=== PATIENT | female | born 1990 | race Caucasian/White ===

== ENCOUNTER 2017-07-24 07:02 | Inpatient (IN) | payer BC, OTHER ==
[2017-07-24 08:36] LABS: Bilirubin NEGATIVE (NEGATIVE); Blood 250 Ery/ul (0-5); Collection Type CLEAN CATCH; Glucose NEGATIVE (NEGATIVE); Leukocyte Esterase 2+ (NEGATIVE)
[2017-07-24 08:37] LABS: Bacteria PACKED /HPF (NEGATIVE); COMPLETE URINE MICROSCOPIC? YES; Epithelial Cells MANY /HPF (FEW); WBC 15-25 /HPF (0-5)
[2017-07-24] MEDS: ROCEPHIN 1 Gm-D5w 50 ml Bag** 1 G/50 ML IVPB IV SCH (10:40)
[2017-07-24] MEDS ORDERED: TYLENOL 325 MG PO PRN (12:49)
[2017-07-24] MEDS ORDERED: XYLOCAINE 1% HCL 20 ML MDV IJ PRN (13:29)
[2017-07-24] MEDS ORDERED: Lactated Ringers 1,000 ML IV SCH (13:30)
[2017-07-24] MEDS ORDERED: PITOCIN 30 UNITS/ LR 500 ML 500 ML IV SCH (13:30)
[2017-07-24 13:40] LABS: BASOPHIL % 0.2 % (0.0-0.4); Eosinophil % 0.7 % (0.00-5.0); Granulocytes % 79.3 % (36.0-66.0); Lymphocytes % 14.9 % (24.0-44.0); Mean Cell Volume 97.5 fl (78-100); Mean Platelet Volume 11.4 fl (6-9.5); Monocytes % 4.9 % (0.0-12.0); Platelet Count 240 K/mm3 (150-450); Red Blood Count 3.55 M/mm3 (4.1-5.4); Red Cell Distribution Width 13.3 % (11.5-14.0); White Blood Count 12.1 K/mm3 (4.0-10.5)
[2017-07-24 13:41] LABS: Mean Corpuscular Hemoglobin 32.6 pg (26-32)
[2017-07-24] MEDS ORDERED: OMNIPEN 2 GM / NACL 100ML 100 ML IV ONE (14:00)
[2017-07-24] MEDS ORDERED: OB EPIDURAL NAROPIN/SUFENTANIL IN NACL EPIDURAL PRN (15:26)
[2017-07-24] MEDS ORDERED: Lactated Ringers 1,000 ML IV ONE (15:26)
[2017-07-24] MEDS ORDERED: Ephedrine Sulfate 50 MG/ML IV PRN (15:26)
[2017-07-24] MEDS ORDERED: OMNIPEN 1GM / NaCl 100ML 100 ML IV SCH (18:00)
[2017-07-24] MEDS: MOTRIN 400 MG PO PRN (20:49)
[2017-07-24] MEDS ORDERED: Dermoplast Spray TP PRN (22:28)
[2017-07-24] MEDS ORDERED: TUCKS TP PRN (22:28)
[2017-07-24] MEDS ORDERED: CORTISONE 1% CREAM TP PRN (22:58)
[2017-07-24] MEDS ORDERED: Mylicon 80MG PO PRN (22:58)
[2017-07-24] MEDS ORDERED: Restoril 15 MG PO PRN (22:58)
[2017-07-24] MEDS ORDERED: NORCO 5/325 MG PO PRN (22:58)
[2017-07-24] MEDS ORDERED: Ambien 10 MG PO PRN (22:58)
[2017-07-24] MEDS ORDERED: Anucort-HC SUPPOSITORY PR PRN (22:58)
[2017-07-24] MEDS ORDERED: Dulcolax 10 MG SUPP PR PRN (22:58)
[2017-07-25] MEDS: TYLENOL EXTRA STRENGTH 500 MG PO PRN ×3 (01:55→20:20)
[2017-07-25 05:45] LABS: BASOPHIL % 0.1 % (0.0-0.4); Eosinophil % 0.9 % (0.00-5.0); Granulocytes % 75.1 % (36.0-66.0); Lymphocytes % 17.3 % (24.0-44.0); Mean Platelet Volume 10.9 fl (6-9.5); Monocytes % 6.6 % (0.0-12.0); Platelet Count 227 K/mm3 (150-450); Red Blood Count 3.42 M/mm3 (4.1-5.4); Red Cell Distribution Width 13.3 % (11.5-14.0); White Blood Count 13.9 K/mm3 (4.0-10.5)
[2017-07-25 05:51] LABS: Mean Corpuscular Hemoglobin 32.1 pg (26-32)
[2017-07-25] MEDS: MOTRIN 400 MG PO PRN ×3 (07:07→20:20)
[2017-07-25] MEDS: ROCEPHIN 1 Gm-D5w 50 ml Bag** 1 G/50 ML IVPB IV SCH (10:28)
[2017-07-25] MEDS: FERREX 150 PO SCH (10:28)
[2017-07-25] MEDS: Colace 100 MG PO SCH ×2 (10:28→20:20)
[2017-07-26] MEDS: MOTRIN 400 MG PO PRN ×2 (08:31→15:53)
--- NOTE | 2017-07-26 08:33 | PCM.DS ---
Discharge Summary Date of Admission: 07/24/17 16:46 Admitting Physician: ARNOL ALLRED Consults: Consults on Case 07/24/17 15:26 Notify Anesthesia Provider PRN 07/24/17 22:59 Notify Physician ROUTINE Primary Care Provider: ARNOL ALLRED Allergies Allergies diphenhydramine HCl [From Benadryl] Allergy (Severe, Verified 07/25/17 12:18) Hives sulfamethoxazole [From Bactrim] Allergy (Verified 07/25/17 12:18) trimethoprim [From Bactrim] Allergy (Verified 07/25/17 12:18) Hospital Summary - Hospital Course Hospital Course: 27yo arrived at 37 3/7 wks EGA in spontaneous labor, was GBS + so received ampicillin prior to delivery. no prolems after delivery, there was concern for UTI on arrival, received rocephin 1g IV x 2 doses but urine culture shows no growth to date so no antibiotics on discharge. she has mild lochia, minimal pain controlled with tylenol and ibuprofen. she is tolerating po, well bonded with son and bottle feeding. - Vitals & Intake/Output Vital Signs: Vital Signs Temperature 98.4 F 07/25/17 20:00 Pulse Rate 73 07/25/17 20:00 Respiratory Rate 18 07/26/17 02:00 Blood Pressure 124/73 07/25/17 20:00 O2 Sat by Pulse Oximetry Intake & Output: Intake & Output 07/23/17 07/24/17 07/25/17 07/26/17 11:59 11:59 11:59 11:59 Intake Total 1500 Output Total 600 Balance -600 1500 Weight 54.431 kg 54.431 kg - Lab Result Diagrams: 07/25/17 05:15 Micro Results-Entire Visit: Microbiology 07/24/17 17:15 Urine Culture - Preliminary Urine, Indwelling Catheter NO GROWTH TO DATE 07/24/17 07:15 Urine Culture - Preliminary Urine, Void NO GROWTH TO DATE Discharge Exam General Appearance: no apparent distress, alert Skin Exam: normal color, warm, dry Respiratory Exam: normal breath sounds, lungs clear, No respiratory distress Cardiovascular Exam: regular rate/rhythm, normal heart sounds Gastrointestinal/Abdomen Exam: soft, No tenderness, No mass Extremity Exam: normal inspection, normal range of motion Final Diagnosis/Problem List - Final Discharge Diagnosis/Problem (1) Vaginal delivery Current Visit: No Status: Acute - Discharge Disposition: Home, Self-Care Condition: Good Prescriptions: No Action No Reportable Medications [No Reported Medications] Follow up with: ARNOL ALLRED MD [Primary Care Provider] - 1 Week
[2017-07-26] MEDS: TYLENOL EXTRA STRENGTH 500 MG PO PRN ×3 (09:58→20:44)
[2017-07-26] MEDS: FERREX 150 PO SCH (09:58)
[2017-07-26] MEDS: Colace 100 MG PO SCH (09:58)
[2017-07-26] MEDS: ROCEPHIN 1 Gm-D5w 50 ml Bag** 1 G/50 ML IVPB IV SCH (10:32)
[2017-07-26 20:42] VITALS: BP 138/89; PULSE 86
== END 2017-07-26 21:00 | disposition home or self-care (01) | DRG 775 ==
LOC: OB 07:02 → UNDOADMOB 07:02 → OBSVTOIN 16:46 → UNDODISIN 07-25 14:00
PROVIDERS: ADMIT Family Medicine; ATTEND Family Medicine
PROC: 10E0XZZ Delivery of Products of Conception, External Approach (ICD-10-PCS; principal; 2017-07-24)
DX: O80 Encounter for full-term uncomplicated delivery (principal); Z3A.37 37 weeks gestation of pregnancy; Z37.0 Single live birth
CPT/HCPCS: 01967; 36415; 80307; 81000; 85025; 87086; G0378; J0290; J0696; J2590; J2795; A9270-GY

== ENCOUNTER 2023-01-21 11:05 | Emergency (ER) | payer OTHER ==
--- NOTE | 2023-01-21 11:09 | ERPHSYRPT ---
- History of Present Illness Time Seen by Provider: 01/21/23 11:08 Source: patient Exam Limitations: no limitations Physician History: This is a 32-year-old white female patient brought in to the emergency room by law enforcement because of paranoid behavior, hallucinations and concerned that she is a threat to herself and others. Onset was rather rapid. Patient history was difficult to obtain from her. Additional history was obtained from the guest services officer and the patient's parents. Patient has a flight of ideas. She does not appear to understand the situation that she is in despite being told several times. There is a concern that she is intoxicated on some type of medication/illicit drug. Patient was IDed by law enforcement. Timing/Duration: today Severity of Symptoms-Max: moderate Severity of Symptoms-Current: moderate Associated Symptoms: hallucinating, impaired concentration, paranoid Previous symptoms: no recent treatment Allergies/Adverse Reactions: diphenhydramine HCl [From Benadryl] Allergy (Severe, Verified 01/21/23 12:01) Hives sulfamethoxazole [From Bactrim] Allergy (Verified 07/25/17 12:18) trimethoprim [From Bactrim] Allergy (Verified 07/25/17 12:18) Home Medications: No Reportable Medications [No Reported Medications] 07/24/17 [History] Hx Tetanus, Diphtheria Vaccination/Date Given: Yes Hx Influenza Vaccination/Date Given: No Hx Pneumococcal Vaccination/Date Given: No Travel Risk - International Travel Have you traveled outside of the country in past 3 weeks: No - Coronavirus Screening Are you exhibiting any of the following symptoms?: No Close contact with a COVID-19 positive Pt in past 14-21 Days: No - Past Medical History Pertinent Past Medical History: No - Past Surgical History Past Surgical History: No - Social History Smoking Status: Current every day smoker Exposure to second hand smoke: No Drug Use: none Patient Lives Alone: No - Review of Systems Constitutional: No Symptoms Eyes: No Symptoms Ears, Nose, & Throat: No Symptoms Respiratory: No Symptoms Cardiac: No Symptoms Abdominal/Gastrointestinal: No Symptoms Genitourinary Symptoms: No Symptoms Musculoskeletal: No Symptoms Skin: No Symptoms Neurological: No Symptoms Psychological: Hallucinations, Mood Changes, Other (Paranoid behavior) Endocrine: No Symptoms Hematologic/Lymphatic: No Symptoms Immunological/Allergic: No Symptoms All Other Systems: Reviewed and Negative - Nursing Vital Signs Nursing Vital Signs: Initial Vital Signs Temperature 98.2 F 01/21/23 11:07 Pulse Rate 148 H 01/21/23 11:07 Blood Pressure 135/100 01/21/23 11:07 O2 Sat by Pulse Oximetry 100 01/21/23 11:07 Pain Scale Pain Intensity 0 - Physical Exam General Appearance: no apparent distress, alert, anxiety, thin Eyes, Ears, Nose, Throat Exam: normal ENT inspection, moist mucous membranes Neck Exam: normal inspection, non-tender, supple, full range of motion Respiratory Exam: normal breath sounds, lungs clear, airway intact, No chest tenderness, No respiratory distress Cardiovascular Exam: normal peripheral pulses, tachycardia Gastrointestinal/Abdominal Exam: soft, normal bowel sounds, No tenderness Extremities Exam: normal inspection, normal range of motion, No evidence of injury Current Suicidality: denies suicide plan Neurological Exam: alert, 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, oriented x 3, anxious Appearance: appropriate appearance, impaired insight Behavior/Eye Contact/Speech: increased rate of speech, alert & uncooperative, intoxicated appearance Thoughts/Hallucinations: auditory hallucinations, paranoid, persecution, phobic Skin Exam: normal color, warm, dry SpO2 Interpretation: normal O2 Delivery: Room Air - Course Nursing assessment & vital signs reviewed: Yes EKG Interpreted by Me: RATE ([id number]), Sinus Tach, NORMAL AXIS, NORMAL INTERVALS, NORMAL QRS, NORMAL ST-T, Other (No acute ischemic changes on today's twelve-lead EKG.) Ordered Tests: Active Orders 24 hr Category Date Time Status Casket Assembler Metal STAT Care 01/21/23 11:12 Active Clean Catch Urine Specimen STAT Care 01/21/23 11:12 Active EKG-ER Only STAT Care 01/21/23 11:12 Active ACETAMINOPHEN Stat Lab 01/21/23 11:35 Completed CBC W DIFF Stat Lab 01/21/23 11:35 Completed CMP Stat Lab 01/21/23 11:35 Completed CULTURE,URINE Stat Lab 01/21/23 12:11 Received ETHYL ALCOHOL Stat Lab 01/21/23 11:35 Completed HCG QUALITATIVE, SERUM Stat Lab 01/21/23 11:35 Completed SALICYLATE Stat Lab 01/21/23 11:35 Completed Urine Triage Profile Stat Lab 01/21/23 12:11 Completed Medication Summary Generic Name Dose Route Start Last Admin Trade Name Freq PRN Reason Stop Dose Admin Lorazepam 1 mg 01/21/23 15:11 Lorazepam 2 Mg/1 Ml 2 Mg Vial IM 01/21/23 15:12 STAT ONE Lab/Rad Data: Laboratory Result Diagrams 01/21/23 11:35 01/21/23 11:35 Laboratory Results 01/21/23 01/21/23 01/21/23 Range/Units 12:11 12:11 11:35 WBC (4.0-10.5) x10^3/uL RBC (4.1-5.4) x10^6/uL Hgb (12.0-16.0) g/dL Hct (35-47) % MCV (78-100) fL MCH (26-32) pg MCHC (32-36) g/dL RDW (11.5-14.0) % Plt Count (150-450) x10^3/uL MPV (7.5-11.0) fL Gran % (36.0-66.0) % Immature Gran % (Auto) (0.00-0.4) % Nucleat RBC Rel Count (0.00-0.1) % Eos # (Auto) (0-0.5) x10^3/uL Immature Gran # (Auto) (0.00-0.03) x10^3u/L Absolute Lymphs (auto) (1.0-4.6) x10^3/uL Absolute Monos (auto) (0.0-1.3) x10^3/uL Absolute Nucleated RBC (0.00-0.01) x10^3u/L Lymphocytes % (24.0-44.0) % Monocytes % (0.0-12.0) % Eosinophils % (0.00-5.0) % Basophils % (0.0-0.4) % Absolute Granulocytes (1.4-6.9) x10^3/uL Basophils # (0-0.4) x10^3/uL Sodium (137-145) mmol/L Potassium (3.5-5.1) mmol/L Chloride (98-107) mmol/L Carbon Dioxide (22-30) mmol/L Anion Gap (5-15) MEQ/L BUN (7-17) mg/dL Creatinine (0.52-1.04) mg/dL Estimated GFR ML/MIN Glucose (74-106) mg/dL Calcium (8.4-10.2) mg/dL Total Bilirubin (0.2-1.3) mg/dL AST (14-36) U/L ALT (0-35) U/L Alkaline Phosphatase (38-126) U/L Serum Total Protein (6.3-8.2) g/dL Albumin (3.5-5.0) g/dL Serum HCG, Qual NEGATIVE (NEGATIVE) Urine Color YELLOW (YELLOW) Urine Appearance CLEAR (CLEAR) Urine pH 6.0 (5-6) Ur Specific [place] >=1.030 A (1.005-1.025) POC Urine Protein Conf 30 A (Negative) Urine Ketones SMALL-15 A (NEGATIVE) Urine Nitrite NEGATIVE (NEGATIVE) Urine Bilirubin NEGATIVE (NEGATIVE) Urine Urobilinogen 0.2 (0-1) mg/dL Urine Leukocytes NEGATIVE (NEGATIVE) Urine RBC TRACE-INTACT A (0-5) Steven/ul Urine Microscopic RBC 0-2 (0-5) /HPF Urine Microscopic WBC 3-5 (0-5) /HPF Ur Epithelial Cells Few (None Seen) /HPF Urine Bacteria Rare A (None Seen) /HPF Urine Culture Reflexed YES (NO) Urine Glucose NEGATIVE (NEGATIVE) mg/dL Salicylates (2-20) mg/dL Urine Opiates Level NEGATIVE (NEGATIVE) Ur Methadone NEGATIVE (NEGATIVE) Acetaminophen (10-30) ug/ml Urine Barbiturates NEGATIVE (NEGATIVE) Ur Phencyclidine (PCP) NEGATIVE (NEGATIVE) Urine Amphetamine POSITIVE (NEGATIVE) U Benzodiazepine Level NEGATIVE (NEGATIVE) Urine Cocaine NEGATIVE (NEGATIVE) Urine Marijuana (THC) NEGATIVE (NEGATIVE) Ethyl Alcohol (0-10) mg/dL 01/21/23 01/21/23 Range/Units 11:35 11:35 WBC 10.1 (4.0-10.5) x10^3/uL RBC 4.54 (4.1-5.4) x10^6/uL Hgb 13.8 (12.0-16.0) g/dL Hct 41.0 (35-47) % MCV 90.3 (78-100) fL MCH 30.4 (26-32) pg MCHC 33.7 (32-36) g/dL RDW 11.9 (11.5-14.0) % Plt Count 340 (150-450) x10^3/uL MPV 10.1 (7.5-11.0) fL Gran % 71.5 H (36.0-66.0) % Immature Gran % (Auto) 0.2 (0.00-0.4) % Nucleat RBC Rel Count 0.0 (0.00-0.1) % Eos # (Auto) 0.05 (0-0.5) x10^3/uL Immature Gran # (Auto) 0.02 (0.00-0.03) x10^3u/L Absolute Lymphs (auto) 2.12 (1.0-4.6) x10^3/uL Absolute Monos (auto) 0.61 (0.0-1.3) x10^3/uL Absolute Nucleated RBC 0.00 (0.00-0.01) x10^3u/L Lymphocytes % 21.0 L (24.0-44.0) % Monocytes % 6.0 (0.0-12.0) % Eosinophils % 0.5 (0.00-5.0) % Basophils % 0.8 (0.0-0.4) % Absolute Granulocytes 7.22 H (1.4-6.9) x10^3/uL Basophils # 0.08 (0-0.4) x10^3/uL Sodium 141 (137-145) mmol/L Potassium 3.4 L (3.5-5.1) mmol/L Chloride 104 (98-107) mmol/L Carbon Dioxide 23 (22-30) mmol/L Anion Gap 16.9 H (5-15) MEQ/L BUN 13 (7-17) mg/dL Creatinine 0.58 (0.52-1.04) mg/dL Estimated GFR > 60.0 ML/MIN Glucose 135 H (74-106) mg/dL Calcium 10.3 H (8.4-10.2) mg/dL Total Bilirubin 0.60 (0.2-1.3) mg/dL AST 25 (14-36) U/L ALT 18 (0-35) U/L Alkaline Phosphatase 104 (38-126) U/L Serum Total Protein 8.4 H (6.3-8.2) g/dL Albumin 4.8 (3.5-5.0) g/dL Serum HCG, Qual (NEGATIVE) Urine Color (YELLOW) Urine Appearance (CLEAR) Urine pH (5-6) Ur Specific [place] (1.005-1.025) POC Urine Protein Conf (Negative) Urine Ketones (NEGATIVE) Urine Nitrite (NEGATIVE) Urine Bilirubin (NEGATIVE) Urine Urobilinogen (0-1) mg/dL Urine Leukocytes (NEGATIVE) Urine RBC (0-5) Steven/ul Urine Microscopic RBC (0-5) /HPF Urine Microscopic WBC (0-5) /HPF Ur Epithelial Cells (None Seen) /HPF Urine Bacteria (None Seen) /HPF Urine Culture Reflexed (NO) Urine Glucose (NEGATIVE) mg/dL Salicylates < 1.0 L (2-20) mg/dL Urine Opiates Level (NEGATIVE) Ur Methadone (NEGATIVE) Acetaminophen < 10 L (10-30) ug/ml Urine Barbiturates (NEGATIVE) Ur Phencyclidine (PCP) (NEGATIVE) Urine Amphetamine (NEGATIVE) U Benzodiazepine Level (NEGATIVE) Urine Cocaine (NEGATIVE) Urine Marijuana (THC) (NEGATIVE) Ethyl Alcohol < 10 (0-10) mg/dL - Progress Progress: improved, re-examined Progress Note: 01/21/23 16:56 Patient has had an emergency alf. [facility] has reviewed this case and they accept the patient in transfer. 01/21/23 16:57 This patient's medical issue is 1 of high complexity and that she will need inpatient therapy and monitoring. She will need detox and psychological therapy concurrently. The level of complexity is based on the patient's past medical history, review of the patient's medication list, review of the patient's illicit drug use list, review of the patient's medication allergy list, history of present illness and physical findings on examination. The work-up includes twelve-lead EKG, urinalysis, urine drug screen, CBC, CMP, salicylate level, acet aminophen level, alcohol level. The patient was becoming more agitated and anxious. After the urine triage was obtained we provided the patient with intramuscular Ativan 1 mg. Patient has been accepted to [facility] inpatient mental health facility. An emergency alf was obtained. Patient is being transferred. Counseled pt/family regarding: lab results, diagnosis Medical Desision Making - Independent Historian Additional History obtained from: Mother, Father, Relative/friend ([employer] who knows family) - Discussion of managment Care discussed with:: specialist Reviewed:: Test results, Need for additional workup Agreed on:: Treatment plan (Patient to be transferred to [facility]) - Diagnostic Testing Diagnostic test were ordered, analyzed, and reviewed by me: Yes - Risk of complications The pt has a high risk of morbidity or mortality based on: Decision regarding hospitilization or escalation of hosp level of care - Departure Departure Disposition: Transfer Clinical Impression: Amphetamine abuse, Paranoid behavior, Delusion, Hallucination, Desire for detoxification Condition: Stable Critical Care Time: No Referrals: NELSY BARGER NP [Primary Care Provider] - Follow up/PCP as directed
[2023-01-21 11:35] LABS: Absolute Neutrophil Ct (ANC) 7.22 x10^3/uL (1.4-6.9); BASOPHIL % 0.8 % (0.0-0.4); Basophil (Absolute #) 0.08 x10^3/uL (0-0.4); Eosinophil % 0.5 % (0.00-5.0); Eosinophil (Absolute #) 0.05 x10^3/uL (0-0.5); Hemoglobin 13.8 g/dL (12.0-16.0); IMMATURE GRAN # 0.02 x10^3u/L (0.00-0.03); IMMATURE GRAN % 0.2 % (0.00-0.4); Lymphocyte (Absolute #) 2.12 x10^3/uL (1.0-4.6); Mean Cell Volume 90.3 fL (78-100); Mean Corpuscular Hemoglobin 30.4 pg (26-32); Mean Corpuscular Hgb Concent. 33.7 g/dL (32-36); Mean Platelet Volume 10.1 fL (7.5-11.0); Monocyte (Absolute #) 0.61 x10^3/uL (0.0-1.3); Neutrophil % 71.5 % (36.0-66.0); Platelet Count 340 x10^3/uL (150-450); Red Blood Count 4.54 x10^6/uL (4.1-5.4); Red Cell Distribution Width 11.9 % (11.5-14.0); White Blood Count 10.1 x10^3/uL (4.0-10.5)
[2023-01-21 11:47] LABS: HCG SERUM TEST NEGATIVE (NEGATIVE)
[2023-01-21 11:49] LABS: ACETAMINOPHEN < 10 ug/ml (10-30); ALBUMIN 4.8 g/dL (3.5-5.0); ALKALINE PHOSPHATASE 104 U/L (38-126); ANION GAP 16.9 MEQ/L (5-15); BLOOD UREA NITROGEN 13 mg/dL (7-17); CHLORIDE 104 mmol/L (98-107); Calcium 10.3 mg/dL (8.4-10.2); Carbon Dioxide 23 mmol/L (22-30); Creatinine 1 0.58 mg/dL (0.52-1.04); EST GLOMERULAR FILTRATION RATE > 60.0 ML/MIN; ETHYL ALCOHOL < 10 mg/dL (0-10); Glucose 135 mg/dL (74-106); Potassium 3.4 mmol/L (3.5-5.1); SALICYLATE < 1.0 mg/dL (2-20); SGOT/AST 25 U/L (14-36); SGPT/ALT 18 U/L (0-35); SODIUM 141 mmol/L (137-145); Total Protein 8.4 g/dL (6.3-8.2)
[2023-01-21 12:01] VITALS: BP 135/100; PULSE 148; O2SAT 100
[2023-01-21 13:10] LABS: Barbiturate,Urine NEGATIVE (NEGATIVE); Benzodiazepine,Urine NEGATIVE (NEGATIVE); Cocaine,Urine NEGATIVE (NEGATIVE); Methadone,Urine NEGATIVE (NEGATIVE); Opiate,Urine NEGATIVE (NEGATIVE); PCP,Urine NEGATIVE (NEGATIVE); THC,Urine NEGATIVE (NEGATIVE)
[2023-01-21 13:51] LABS: Appearance CLEAR (CLEAR); Bilirubin NEGATIVE (NEGATIVE); Glucose NEGATIVE (NEGATIVE); Ketones SMALL-15 (NEGATIVE); Nitrite NEGATIVE (NEGATIVE); Protein,Urine Dip 30 (Negative); RBC TRACE-INTACT Ery/ul (0-5); Specific Gravity >=1.030 (1.005-1.025); Urobilinogen 0.2 mg/dL (0-1)
[2023-01-21 14:08] LABS: Epithelial Cells Few /HPF (None Seen); RBC 0-2 /HPF (0-5)
[2023-01-21 14:09] LABS: ADD URINE CULTURE? YES (NO); Bacteria Rare /HPF (None Seen)
[2023-01-21 15:09] LABS: Amphetamine,Urine POSITIVE (NEGATIVE)
[2023-01-21] MEDS ORDERED: Ativan 2 MG/1 ML VIAL IM ONE (15:11)
== END 2023-01-21 17:20 ==
LOC: ED 11:05
DX: F15.10 Other stimulant abuse, uncomplicated (principal); R44.3 Hallucinations, unspecified; F22 Delusional disorders; Z72.0 Tobacco use
CPT/HCPCS: 36415; 80053; 80143; 80179; 80307; 81015; 82077; 84703; 85025; 87086; 93005; 99284